=== PATIENT | female | born 1995 | race Caucasian/White ===

== ENCOUNTER 2017-09-19 19:05 | Emergency (ER) | payer SELFPAY ==
[~2017-09-19] VITALS: Ht 165.1 cm; Wt 61.7 kg
[2017-09-19 19:30] VITALS: BP 141/86
[2017-09-19 20:20] LABS: Urine Bacteria FEW /hpf (None Seen); Urine Blood Negative /uL (Negative); Urine Mucus FEW (None Seen); Urine Specific Gravity 1.009 (1.001-1.035); Urine WBC <1 /hpf (0 - 5)
[2017-09-19 20:42] LABS: Basophils # (auto) 0 uL; Basophils % (auto) 0.4 % (0.0-2.0); Eosinophils # (auto) 0 uL; Eosinophils % (auto) 0.4 % (0.0-7.0); Hematocrit 42.4 % (36.0-46.0); Lymphocytes # (auto) 1.8 uL; Lymphocytes % (auto) 15.6 % (10.0-50.0); Mean Corpuscular Hemoglobin 27.4 pg (28.0-32.0); Monocytes # (auto) 0.5 uL; Monocytes % (auto) 4.8 % (0.0-12.0); Neutrophils # (auto) 8.9 uL; Neutrophils % (auto) 78.8 % (37.0-80.0); Platelet Count (auto) 312 10^3/uL (140-450); Red Blood Cells 5.11 10^6/uL (4.0-5.20); Red Cell Distribution Width 13.2 % (11.8-14.3); White Blood Cell 11.3 10^3/uL (4.4-10.8)
[2017-09-19 21:00] LABS: Albumin 4.5 g/dL (3.4-5.0); BUN/Creatinine Ratio 14.7; Calcium 9.5 mg/dL (8.5-10.1); Potassium 3.5 mmol/L (3.5-5.1)
[2017-09-19 21:03] LABS: Bilirubin, Total 0.3 mg/dL (0.2-1.0); Total Protein 8.3 g/dL (6.4-8.2)
== END 2017-09-20 03:39 | disposition left against medical advice (07) ==
LOC: ER 19:05
DX: R06.02 Shortness of breath (principal); Z53.21 Procedure and treatment not carried out due to patient leaving prior to being seen by health care provider
CPT/HCPCS: 36415; 71046; 80053; 81001; 81025; 85025

== ENCOUNTER → 2021-10-30 | Outpatient (CLI) | payer BC ==
[2021-10-30 14:06] LABS: Basophils # (auto) 0.1 10 ^3/uL (0-0.2); Basophils % (auto) 1.3 % (0.0-2.0); Eosinophils # (auto) 0.1 10 ^3/uL (0-0.8); Eosinophils % (auto) 1.4 % (0.0-7.0); Hematocrit 39.8 % (36.0-46.0); Hemoglobin 13.3 g/dL (12.2-16.2); Lymphocytes # (auto) 1.4 10 ^3/uL (0.4-5.4); Lymphocytes % (auto) 23.3 % (10.0-50.0); Mean Corpuscular Hgb Conc. 33.4 g/dL (32.0-36.0); Mean Corpuscular Volume 83.7 fL (80.0-100.0); Monocytes # (auto) 0.4 10 ^3/uL (0-1.3); Monocytes % (auto) 7.1 % (0.0-12.0); Neutrophils # (auto) 3.9 10 ^3/uL (1.6-8.6); Neutrophils % (auto) 66.9 % (37.0-80.0); Red Blood Cells 4.76 10^6/uL (4.0-5.20); Red Cell Distribution Width 12.8 % (11.8-14.3); White Blood Cell 5.9 10^3/uL (4.4-10.8)
[2021-10-30 14:14] LABS: Potassium 4.2 mmol/L (3.5-5.1)
[2021-10-30 14:27] LABS: Albumin 4.2 g/dL (3.4-5.0); BUN/Creatinine Ratio 11.5; Bilirubin, Total 0.6 mg/dL (0.2-1.0); Calcium 9.6 mg/dL (8.5-10.1); Total Protein 7.5 g/dL (6.4-8.2)
== END | disposition home or self-care (01) ==
LOC: LAB 10:10
PROVIDERS: ATTEND Student in an Organized Health Care Education/Training Program
DX: R10.84 Generalized abdominal pain (principal)
CPT/HCPCS: 36415; 80053; 85025

== ENCOUNTER → 2022-02-06 | Day surgery (SDC) | payer BC ==
[2022-02-04 09:29] LABS: Hematocrit 38.7 % (36.0-46.0); Hemoglobin 13.7 g/dL (12.2-16.2); Mean Corpuscular Hemoglobin 28.8 pg (28.0-32.0); Mean Corpuscular Hgb Conc. 35.3 g/dL (32.0-36.0); Mean Corpuscular Volume 81.5 fL (80.0-100.0); Red Blood Cells 4.75 10^6/uL (4.0-5.20); Red Cell Distribution Width 12.8 % (11.8-14.3); White Blood Cell 6.7 10^3/uL (4.4-10.8)
[2022-02-04 09:37] LABS: Band Neutrophils % (manual) 0; Basophils % (manual) 0 (0.0-2.0); Blast Cells 0; Metamyelocytes % 0; Myelocytes % 0; Promyelocytes % 0; Reactive Lymphocytes 0
[2022-02-04 10:00] LABS: Potassium 4.3 mmol/L (3.5-5.1)
[2022-02-04 10:13] LABS: Albumin 4.3 g/dL (3.4-5.0); BUN/Creatinine Ratio 15.1; Bilirubin, Total 0.5 mg/dL (0.2-1.0); Calcium 9.5 mg/dL (8.5-10.1); Total Protein 8.1 g/dL (6.4-8.2)
[2022-02-04 10:21] LABS: Partial Thromboplastin Time 33.9 sec (23.6-33.0)
[2022-02-04 10:38] LABS: Eosinophils % (manual) 1 (0-7); Lymphocytes % (manual) 24 (10.0-50.0); Monocytes % (manual) 8 (0-12)
[~2022-02-06] VITALS: Ht 165.1 cm; Wt 65.8 kg
[~2022-02-06] MED LIST: DexAMETHasone SOD PHOS 10MG/1ML VIAL INJ ONE; ETON1IMP SC; KETOROLAC TROMETH 30 MG/ML 1ML VIAL IV ONE; LABETALOL HCL 5 MG/ML 4ML SYRINGE IV PRN; LIDOCAINE VISCOUS 2% 15ML UD ONE; MEPERIDINE HCL (25 MG/ML) 1ML VIAL ONE; MIDAZOLAM HCL 2MG/2ML 2ml VIAL (1mg/ml) IV PRN; MIDAZOLAM HCL 2MG/2ML 2ml VIAL (1mg/ml) ONE; MORPHINE SULFATE 4 MG/ML SYR/VIAL IV PRN; ONDANSETRON HCL 4 MG/2 ML VIAL IV PRN; PANT40T PO; PROPOFOL 10 MG/ML 20 ML IV ONE; ePHEDrine SULFATE 50 MG/ML AMP IV PRN; fentaNYL CITRATE 100 MCG/2 ML VL ONE
[2022-02-06 15:46] VITALS: BP 115/71
== END | disposition home or self-care (01) ==
LOC: GI 13:58
PROVIDERS: ATTEND Internal Medicine Gastroenterology
DX: R19.7 Diarrhea, unspecified (principal); K21.00 Gastro-esophageal reflux disease with esophagitis, without bleeding; K22.10 Ulcer of esophagus without bleeding; K29.50 Unspecified chronic gastritis without bleeding; Z88.2 Allergy status to sulfonamides; Z20.822 Contact with and (suspected) exposure to COVID-19
CPT/HCPCS: 36415; 43239; 80053; 81025; 84702; 85007; 85027; 85610; 85730; 88305; 88342; J1100; J2175; J2250; J2704; J3010; J7030; U0003

== ENCOUNTER 2022-03-27 12:24 | Day surgery (SDC) | payer BC ==
[2022-03-25 09:11] LABS: Basophils # (auto) 0 10 ^3/uL (0-0.2); Basophils % (auto) 0.9 % (0.0-2.0); Eosinophils # (auto) 0.1 10 ^3/uL (0-0.8); Eosinophils % (auto) 1.8 % (0.0-7.0); Hematocrit 38.7 % (36.0-46.0); Hemoglobin 12.6 g/dL (12.2-16.2); Lymphocytes # (auto) 1.4 10 ^3/uL (0.4-5.4); Lymphocytes % (auto) 25.3 % (10.0-50.0); Mean Corpuscular Hemoglobin 27.1 pg (28.0-32.0); Mean Corpuscular Hgb Conc. 32.6 g/dL (32.0-36.0); Mean Corpuscular Volume 83.2 fL (80.0-100.0); Monocytes # (auto) 0.5 10 ^3/uL (0-1.3); Monocytes % (auto) 8.7 % (0.0-12.0); Neutrophils # (auto) 3.6 10 ^3/uL (1.6-8.6); Neutrophils % (auto) 63.3 % (37.0-80.0); Nucleated Red Blood Cells % 0.1 %; Red Blood Cells 4.65 10^6/uL (4.0-5.20); Red Cell Distribution Width 13.5 % (11.8-14.3); White Blood Cell 5.7 10^3/uL (4.4-10.8)
[2022-03-25 09:20] LABS: Urine Bacteria FEW /hpf (None Seen); Urine Blood Negative /uL (Negative); Urine Mucus FEW (None Seen); Urine Specific Gravity 1.024 (1.001-1.035); Urine WBC 2 /hpf (0 - 5)
[2022-03-25 09:29] LABS: INR 0.93 (0.9-1.15)
[2022-03-25 09:42] LABS: BUN/Creatinine Ratio 14.3; Bilirubin, Total 0.4 mg/dL (0.2-1.0); Calcium 8.7 mg/dL (8.5-10.1); Total Protein 6.9 g/dL (6.4-8.2)
[~2022-03-27] VITALS: Ht 165.1 cm; Wt 65.8 kg
[~2022-03-27 12:24] MED LIST changes: -DexAMETHasone SOD PHOS 10MG/1ML VIAL INJ ONE; -KETOROLAC TROMETH 30 MG/ML 1ML VIAL IV ONE; -LABETALOL HCL 5 MG/ML 4ML SYRINGE IV PRN; -LIDOCAINE VISCOUS 2% 15ML UD ONE; -MEPERIDINE HCL (25 MG/ML) 1ML VIAL ONE; -MIDAZOLAM HCL 2MG/2ML 2ml VIAL (1mg/ml) IV PRN; -MIDAZOLAM HCL 2MG/2ML 2ml VIAL (1mg/ml) ONE; -MORPHINE SULFATE 4 MG/ML SYR/VIAL IV PRN; -ONDANSETRON HCL 4 MG/2 ML VIAL IV PRN; -PROPOFOL 10 MG/ML 20 ML IV ONE; -ePHEDrine SULFATE 50 MG/ML AMP IV PRN; -fentaNYL CITRATE 100 MCG/2 ML VL ONE
[2022-03-27] MEDS ORDERED: fentaNYL CITRATE 100 MCG/2 ML VL ONE (12:47)
[2022-03-27] MEDS ORDERED: SODIUM CHLORIDE LOCK 10 ML ONE (12:47)
[2022-03-27] MEDS ORDERED: DexAMETHasone SOD PHOS 10MG/1ML VIAL INJ ONE (12:47)
[2022-03-27] MEDS ORDERED: MIDAZOLAM HCL 2MG/2ML 2ml VIAL (1mg/ml) ONE (12:47)
[2022-03-27] MEDS ORDERED: ONDANSETRON HCL 4 MG/2 ML VIAL ONE (12:47)
[2022-03-27] MEDS ORDERED: PROPOFOL 10 MG/ML 20 ML IV ONE (12:47)
[2022-03-27] MEDS ORDERED: HYDROmorphone HCL 2 MG/ML VL/or syr IV PRN (13:00)
[2022-03-27] MEDS ORDERED: MORPHINE SULFATE 4 MG/ML SYR/VIAL IV PRN (13:00)
[2022-03-27] MEDS ORDERED: METOCLOPRAMIDE HCL 5MG/ml INJ 2ml VIAL IV PRN (13:00)
[2022-03-27 14:22] VITALS: BP 101/58
== END 2022-03-27 14:38 | disposition home or self-care (01) ==
LOC: GI 12:24
PROVIDERS: ATTEND Internal Medicine Gastroenterology
DX: K52.9 Noninfective gastroenteritis and colitis, unspecified (principal); K63.5 Polyp of colon; K57.30 Diverticulosis of large intestine without perforation or abscess without bleeding; K63.89 Other specified diseases of intestine; K62.89 Other specified diseases of anus and rectum; K21.9 Gastro-esophageal reflux disease without esophagitis; Z88.2 Allergy status to sulfonamides; Z80.0 Family history of malignant neoplasm of digestive organs; Z20.822 Contact with and (suspected) exposure to COVID-19
CPT/HCPCS: 36415; 45380; 80053; 81001; 81025; 84702; 85025; 85610; 85730; 88305; J1100; J2250; J2405; J2704; J3010; J7030; U0003; 99152

== ENCOUNTER → 2022-04-09 | Outpatient (CLI) | payer BC | END | disposition home or self-care (01) | LOC: LAB 09:40 | PROVIDERS: ATTEND Internal Medicine Gastroenterology | DX: R19.7 Diarrhea, unspecified (principal) | CPT/HCPCS: 36415; 82784; 83516; 84443; 86255 ==

== ENCOUNTER 2022-05-05 15:28 | Emergency (ER) | payer BC, MEDICAID ==
[~2022-05-05] VITALS: Ht 165.1 cm; Wt 70.0 kg
[2022-05-05 16:08] VITALS: BP 120/89
[2022-05-05 17:50] LABS: Urine Bacteria FEW /hpf (None Seen); Urine Blood Negative /uL (Negative); Urine Specific Gravity 1.009 (1.001-1.035); Urine WBC 1 /hpf (0 - 5)
[2022-05-05 19:19] LABS: Eosinophils # (auto) 0.1 10 ^3/uL (0-0.8); Hemoglobin 12.9 g/dL (12.2-16.2); Lymphocytes # (auto) 2.6 10 ^3/uL (0.4-5.4); Mean Corpuscular Hemoglobin 26.9 pg (28.0-32.0); Monocytes # (auto) 0.6 10 ^3/uL (0-1.3); Red Blood Cells 4.78 10^6/uL (4.0-5.20)
[2022-05-05 19:21] LABS: Basophils # (auto) 0 10 ^3/uL (0-0.2); Basophils % (auto) 0.4 % (0.0-2.0); Eosinophils % (auto) 0.7 % (0.0-7.0); Lymphocytes % (auto) 26.9 % (10.0-50.0); Mean Corpuscular Hgb Conc. 32.9 g/dL (32.0-36.0); Mean Corpuscular Volume 81.7 fL (80.0-100.0); Monocytes % (auto) 6.1 % (0.0-12.0); Neutrophils # (auto) 6.4 10 ^3/uL (1.6-8.6); Neutrophils % (auto) 65.9 % (37.0-80.0); Red Cell Distribution Width 13.3 % (11.8-14.3); White Blood Cell 9.8 10^3/uL (4.4-10.8)
[2022-05-05 19:41] LABS: Albumin 4.3 g/dL (3.4-5.0); BUN/Creatinine Ratio 20.8; Calcium 9.2 mg/dL (8.5-10.1); Potassium 3.7 mmol/L (3.5-5.1)
[2022-05-05 19:43] LABS: Bilirubin, Total 0.2 mg/dL (0.2-1.0); Total Protein 7.4 g/dL (6.4-8.2)
== END 2022-05-05 20:52 | disposition left against medical advice (07) ==
LOC: ER 15:28
DX: R42 Dizziness and giddiness (principal); Z53.21 Procedure and treatment not carried out due to patient leaving prior to being seen by health care provider
CPT/HCPCS: 36415; 80053; 81001; 85025

== ENCOUNTER → 2022-10-28 | Outpatient (CLI) | payer BC, MEDICAID | END | disposition home or self-care (01) | LOC: XYW 08:07 | PROVIDERS: ATTEND Internal Medicine | DX: I07.1 Rheumatic tricuspid insufficiency (principal); R00.2 Palpitations; R55 Syncope and collapse | CPT/HCPCS: 93306 ==

== ENCOUNTER → 2022-10-31 | Outpatient (CLI) | payer BC, MEDICAID | END | disposition home or self-care (01) | LOC: XY 09:58 | PROVIDERS: ATTEND Internal Medicine | DX: R00.2 Palpitations (principal); R55 Syncope and collapse; Z79.899 Other long term (current) drug therapy | CPT/HCPCS: 78452; 93017; A9500 ==

== ENCOUNTER 2023-04-18 10:44 | Emergency (ER) | payer BC, MEDICAID ==
[~2023-04-18] VITALS: Ht 165.1 cm; Wt 75.6 kg
[~2023-04-18 10:44] MED LIST changes: -ETON1IMP SC; +ETON68IM3 SC
[2023-04-18] MEDS ORDERED: SODIUM CHLORIDE 0.9% 1,000 ML IV ONE (11:30)
[2023-04-18 12:05] LABS: Eosinophils # (auto) 0 10 ^3/uL (0-0.8); Eosinophils % (auto) 0.5 % (0.0-7.0); Hemoglobin 12.8 g/dL (12.2-16.2); Neutrophils # (auto) 5.2 10 ^3/uL (1.6-8.6); White Blood Cell 7.4 10^3/uL (4.4-10.8)
[2023-04-18 12:07] LABS: Basophils # (auto) 0 10 ^3/uL (0-0.2); Basophils % (auto) 0.5 % (0.0-2.0); Hematocrit 38.4 % (36.0-46.0); Lymphocytes # (auto) 1.6 10 ^3/uL (0.4-5.4); Lymphocytes % (auto) 22.4 % (10.0-50.0); Mean Corpuscular Hgb Conc. 33.4 g/dL (32.0-36.0); Mean Corpuscular Volume 80.9 fL (80.0-100.0); Monocytes # (auto) 0.5 10 ^3/uL (0-1.3); Monocytes % (auto) 6.3 % (0.0-12.0); Neutrophils % (auto) 70.3 % (37.0-80.0); Nucleated Red Blood Cells % 0.2 %; Red Blood Cells 4.74 10^6/uL (4.0-5.20); Red Cell Distribution Width 12.9 % (11.8-14.3)
[2023-04-18 12:15] LABS: Potassium 3.8 mmol/L (3.5-5.1)
[2023-04-18 12:22] LABS: Albumin 4.3 g/dL (3.4-5.0); BUN/Creatinine Ratio 14.4 (10.0-20.0); Bilirubin, Total 0.2 mg/dL (0.2-1.0); Calcium 9.1 mg/dL (8.5-10.1); Total Protein 7.4 g/dL (6.4-8.2)
[2023-04-18 16:13] VITALS: BP 117/80; PULSE 68; RESP 18; TEMP 98.2; O2SAT 97
== END 2023-04-18 16:15 | disposition home or self-care (01) ==
LOC: EEVIPCON 10:44 → ER 10:44
DX: R55 Syncope and collapse (principal); R06.02 Shortness of breath; R00.2 Palpitations; G90.A Postural orthostatic tachycardia syndrome [POTS]; K21.9 Gastro-esophageal reflux disease without esophagitis; Z88.2 Allergy status to sulfonamides; Z79.899 Other long term (current) drug therapy
CPT/HCPCS: 36415; 70450; 80053; 84484; 85025; 93005; 96360; 99285; J7030